=== PATIENT | female | born 1980 | race Caucasian/White ===

== ENCOUNTER 2019-01-07 17:34 | Emergency (ER) | payer OTHER ==
[2019-01-07] MEDS ORDERED: NS 1,000 ML IV ONE ×2 (17:47→19:40)
[2019-01-07] MEDS ORDERED: ONDANSETRON 4 MG/2 ML VIAL ONE (17:53)
[2019-01-07] MEDS ORDERED: ONDANSETRON 4 MG/2 ML VIAL IVP ONE ×2 (17:53→18:08)
[2019-01-07 17:56] LABS: PLATELET COUNT 247 10^3/uL (150-400)
[2019-01-07] MEDS ORDERED: fentaNYL 100 MCG/2 ML INJ IVP ONE (18:23)
--- NOTE | 2019-01-07 18:26 | EDPHY ---
H & P Stated Complaint: abd pain, n/v/d Time Seen by Provider: 01/07/19 17:45 HPI/ROS: CHIEF COMPLAINT: Abdominal pain, nausea, vomiting, diarrhea HISTORY OF PRESENT ILLNESS: 38-year-old female presents emergency department reporting that earlier this afternoon she developed dizziness associated with nausea, crampy abdominal pain, felt like she need to have a bowel movement, and then had a diarrheal stool. Since that time she has had nausea and vomited multiple times. No hematemesis, no blood in the stool. No dark or tarry colored stools. No significant abdominal pain, just reports crampy nauseous feeling. No ill contacts. No fevers or chills. She does report having cold symptoms, and a cough for the last several days. REVIEW OF SYSTEMS: A comprehensive 10 system review of systems was reviewed and is otherwise negative aside from elements mentioned in the history of present illness and medical decision making. PAST MEDICAL HISTORY: Patient denies. 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 VITAL SIGNS Reviewed by me. GENERAL: Well-developed, well-nourished, complaining of nausea.. HEENT: Atraumatic. Eyes: No icterus, no injection. Mouth: moist mucous membranes. No erythema or lesions. Neck: supple with no adenopathy. LUNGS: Clear to auscultation bilaterally, no wheezes, rhonchi or rales. CARDIAC: Regular rate and rhythm, no rubs, murmurs or gallops. ABDOMEN: Soft, no tenderness on palpation, no distention. Normal bowel sounds. BACK: No CVA tenderness. EXTREMITIES: No trauma. No edema. Range of motion is normal throughout. NEURO: Alert and oriented, grossly nonfocal. SKIN: Warm and dry, no rash. PSYCHIATRIC: Normal mentation, no agitation. - Personal History LMP (Females 10-55): 22-28 Days Ago Current Tetanus Diphtheria and Acellular Pertussis (TDAP): Unsure - Medical/Surgical History Hx Asthma: No Hx Chronic Respiratory Disease: No Hx Diabetes: No Hx Cardiac Disease: No Hx Renal Disease: No Hx Cirrhosis: No Hx Alcoholism: No Hx HIV/AIDS: No Hx Splenectomy or Spleen Trauma: No Other PMH: depression - Social History Smoking Status: Never smoked Constitutional: Initial Vital Signs Temperature (C) 36.3 C 01/07/19 17:41 Heart Rate 57 L 01/07/19 17:41 Respiratory Rate 16 01/07/19 17:41 Blood Pressure 126/83 H 01/07/19 17:41 O2 Sat (%) 100 01/07/19 17:41 O2 Delivery Mode Room Air Allergies/Adverse Reactions: No Known Drug Allergies Allergy (Verified 01/07/19 17:44) Home Medications: Medication Instructions Recorded Ondansetron Odt [Zofran Odt 4 mg 4 mg PO Q6 PRN #8 tab 01/07/19 (RX)] Promethazine HCl [Phenergan 12.5mg 12.5 mg PO Q8 PRN #12 tablet 01/07/19 tab] Medical Decision Making ED Course/Re-evaluation: IV was placed and patient received a L of normal saline. Zofran 4 mg was administered. On re-evaluation the patient continues to complain of nausea. Additional 4 mg of Zofran was given. Laboratory evaluation is largely unremarkable. Patient continues have minimal relief with her Zofran. Phenergan was given. She reports this improved her nausea slightly. On re-evaluation at 7:30 p.m., patient reports that she threw up here and had 2 episodes of diarrhea. Unfortunately GI pathogen panel was not collected. Additional liter of NS was given in the patient received Ativan for ongoing nausea. This improved her symptoms. She was ambulatory from the emergency department with her family. I suspect a viral etiology. Orders for GI pathogen panel placed. Patient was discharged with Phenergan as well as Zofran. Differential Diagnosis: Differential diagnosis of the patient's nausea and vomiting was considered including but not limited to gastroenteritis, gastritis, alcohol intoxication, withdrawal symptoms, intraabdominal processes including appendicitis, pancreatitis, bowel obstruction and medication side effect. - Data Points Laboratory Results: Laboratory Results 01/07/19 17:52 01/07/19 17:52 01/07/19 01/07/19 01/07/19 17:52 17:52 17:52 WBC 11.53 10^3/uL H 10^3/uL (3.80-9.50) RBC 4.44 10^6/uL 10^6/uL (4.18-5.33) Hgb 14.3 g/dL g/dL (12.6-16.3) Hct 41.6 % % (38.0-47.0) MCV 93.7 fL fL (81.5-99.8) MCH 32.2 pg pg (27.9-34.1) MCHC 34.4 g/dL g/dL (32.4-36.7) RDW 11.6 % % (11.5-15.2) Plt Count 247 10^3/uL 10^3/uL (150-400) MPV 11.7 fL fL (8.7-11.7) Neut % (Auto) 72.7 % % (39.3-74.2) Lymph % (Auto) 21.8 % % (15.0-45.0) Mower % (Auto) 3.8 % L % (4.5-13.0) Eos % (Auto) 1.0 % % (0.6-7.6) Baso % (Auto) 0.4 % % (0.3-1.7) Nucleat RBC Rel Count 0.0 % % (0.0-0.2) Absolute Neuts (auto) 8.37 10^3/uL H 10^3/uL (1.70-6.50) Absolute Lymphs (auto) 2.51 10^3/uL 10^3/uL (1.00-3.00) Absolute Monos (auto) 0.44 10^3/uL 10^3/uL (0.30-0.80) Absolute Eos (auto) 0.12 10^3/uL 10^3/uL (0.03-0.40) Absolute Basos (auto) 0.05 10^3/uL 10^3/uL (0.02-0.10) Absolute Nucleated RBC 0.00 10^3/uL 10^3/uL (0-0.01) Immature Gran % 0.3 % % (0.0-1.1) Immature Gran # 0.04 10^3/uL 10^3/uL (0.00-0.10) Sodium 139 mEq/L mEq/L (135-145) Potassium 3.5 mEq/L mEq/L (3.5-5.2) Chloride 103 mEq/L mEq/L (97-110) Carbon Dioxide 22 mEq/l mEq/l (22-31) Anion Gap 14 mEq/L mEq/L (6-14) BUN 15 mg/dL mg/dL (7-23) Creatinine 0.7 mg/dL mg/dL (0.6-1.0) Estimated GFR > 60 Glucose 112 mg/dL H mg/dL (70-100) Calcium 9.9 mg/dL mg/dL (8.5-10.4) Total Bilirubin 0.8 mg/dL mg/dL (0.1-1.4) Conjugated Bilirubin 0.2 mg/dL mg/dL (0.0-0.5) Unconjugated Bilirubin 0.6 mg/dL mg/dL (0.0-1.1) AST 24 IU/L IU/L (14-46) ALT 51 IU/L IU/L (9-52) Alkaline Phosphatase 69 IU/L IU/L (38-126) Total Protein 7.9 g/dL g/dL (6.3-8.2) Albumin 4.7 g/dL g/dL (3.5-5.0) Lipase 87 IU/L IU/L (23-300) Beta HCG, Qual NEGATIVE Medications Given: Discontinued Medications Fentanyl (Sublimaze) 50 mcg IVP EDNOW ONE Stop: 01/07/19 18:24 Last Admin: 01/07/19 18:51 Dose: 50 mcg Hydromorphone HCl (Dilaudid) 0.5 mg IVP EDNOW ONE Stop: 01/07/19 19:41 Last Admin: 01/07/19 19:58 Dose: Not Given Sodium Chloride (Ns) 1,000 mls @ 0 mls/hr IV EDNOW ONE; Wide Open PRN Reason: Protocol Stop: 01/07/19 17:48 Last Admin: 01/07/19 17:50 Dose: 1,000 mls Sodium Chloride (Ns) 1,000 mls @ 0 mls/hr IV ONCE ONE; Wide Open PRN Reason: Protocol Stop: 01/07/19 19:41 Last Admin: 01/07/19 19:57 Dose: 1,000 mls Loperamide HCl ( Imodium) 4 mg PO EDNOW ONE Stop: 01/07/19 19:43 Last Admin: 01/07/19 19:58 Dose: Not Given Lorazepam (Ativan Injection) 1 mg IVP EDNOW ONE Stop: 01/07/19 20:01 Last Admin: 04/12/19 20:08 Dose: 1 mg Ondansetron HCl (Zofran) 4 mg IVP EDNOW ONE Stop: 01/07/19 17:54 Last Admin: 01/07/19 17:50 Dose: 4 mg Ondansetron HCl (Zofran) 4 mg IVP EDNOW ONE Stop: 01/07/19 18:09 Last Admin: 01/07/19 18:12 Dose: 4 mg Ondansetron HCl (Zofran Odt 4 Mg Prepack#2) 1 btl TAKEHOME EDNOW ONE Stop: 01/07/19 18:43 Last Admin: 01/07/19 20:56 Dose: 1 btl Promethazine HCl (Phenergan) 12.5 mg IVP ONCE ONE Stop: 01/07/19 18:55 Last Admin: 01/07/19 18:59 Dose: 12.5 mg Departure - Departure Disposition: Home, Routine, Self-Care Clinical Impression: Nausea vomiting and diarrhea Abdominal pain Qualifiers: Abdominal location: generalized Qualified Code(s): R10.84 - Generalized abdominal pain Condition: Good Instructions: Ondansetron (By mouth), Gastroenteritis (ED), Acute Nausea and Vomiting (ED) Additional Instructions: Okay to use Phenergan as needed for ongoing nausea and vomiting. If you have ongoing diarrhea, you may take Imodium. Please provide a stool sample prior to taking the immodium. For your abdominal discomfort, nausea, diarrhea, I suggested you start with a bland diet and advance as tolerated. This means start with clear liquids such as water, Gatorade, juice, flat non- caffeinated soda. If you tolerate clear liquids, then you may add bland foods such as bananas, rice, or toast. If you do not have any worsening of your symptoms, you may begin to resume a regular diet. Return to the emergency department or seek care urgently if you develop fever, worsening pain despite the above treatment, ongoing diarrhea or vomiting despite the above treatment, or other concerns. Referrals: NONE *PRIMARY CARE P,. [Primary Care Provider] - As per Instructions Prescriptions: Ondansetron Odt [Zofran Odt 4 mg (RX)] 4 mg PO Q6 PRN #8 tab PRN Reason: Nausea Promethazine HCl [Phenergan 12.5mg tab] 12.5 mg PO Q8 PRN #12 tablet PRN Reason: nausea
[2019-01-07] MEDS ORDERED: ONDANSETRON 4MG PREPACK#2 BTL TAKEHOME ONE (18:42)
[2019-01-07] MEDS ORDERED: PROMETHAZINE HCL 25 MG/ML INJ IVP ONE (18:54)
[2019-01-07] MEDS ORDERED: HYDROmorphONE/DILAUDID 2 MG/ML INJ IVP ONE (19:40)
[2019-01-07] MEDS ORDERED: LOPERAMIDE HCL 2 MG CAP PO ONE (19:42)
[2019-01-07] MEDS ORDERED: LORazepam 2 MG/ML INJ IVP ONE (20:00)
[2019-01-07 20:15] VITALS: BP 143/82
== END 2019-01-07 20:59 | disposition home or self-care (01) ==
DX: R11.2 Nausea with vomiting, unspecified (principal); R19.7 Diarrhea, unspecified; R10.84 Generalized abdominal pain; E86.9 Volume depletion, unspecified
CPT/HCPCS: 96374; J1170; J2060; J2405; J2550; J3010